=== PATIENT | female | born 1955 | race Caucasian/White ===

== ENCOUNTER → 2018-09-13 13:17 | Outpatient (CLI) | payer OTHER, MEDICAID, SELFPAY ==
[2018-09-13 13:58] LABS: Add Manual Diff / Slide Review NO; Basophils Percent Auto 0.5 % (0-2); Eosinophils Percent Auto 0.8 % (2-4); Hematocrit 40.2 % (36-46); Hemoglobin 14.1 g/dL (12.0-16.0); Lymphocytes Percent Auto 43.7 % (25-40); Mean Corpuscular Hemoglobin 30.1 PG (26-34); Mean Corpuscular Volume 86.1 fL (80-100); Monocytes Percent Auto 10.9 % (3-14); Neutrophils Absolute Auto 3000 /uL (1500-7000); Neutrophils Percent Auto 44.1 % (50-75); Platelet Count 272 X10^3/uL (150-400); Red Blood Cell Count 4.67 X10^6/uL (4.0-5.2); Red Cell Distribution Width 12.9 % (11.6-14.8); White Blood Cell Count 6.8 X10^3/uL (4.5-11.0)
[2018-09-13 14:02] LABS: Hemoglobin A1C% w Est Avg Glu 5.4 % (4.0-6.0)
[2018-09-13 14:14] LABS: HEMOLYSIS < 15 (0-50); Iron 89 ug/dL (37-170)
[2018-09-13 14:16] LABS: Alanine Aminotransferase 24 IU/L (9-52); Albumin 5.1 g/dL (3.5-5.0); Alkaline Phosphatase 92 U/L (38-126); Aspartate Aminotransferase 25 IU/L (14-36); BUN Creatinine Ratio 12.9 (6-22); Bilirubin Total 0.4 mg/dL (0.2-1.3); Blood Urea Nitrogen 9 mg/dL (7-17); Calcium 10.2 mg/dL (8.4-10.2); Carbon Dioxide 24 mmol/L (22-32); Chloride 105 mmol/L (98-107); Cholesterol 237 mg/dL (140-199); Estimated Glomerular Filt Rate > 60.0 mL/min (>60); Globulin 2.6 g/dL (1.7-4.1); Glucose 92 mg/dL (80-110); HDL Cholesterol 65 mg/dL (40-60); HEMOLYSIS < 15 (0-50); LDL Cholesterol Calculated 150 mg/dL (<100); Potassium 4.1 mmol/L (3.4-5.1); Sodium 142 mmol/L (137-145); Total Protein 7.7 g/dL (6.3-8.2); Triglycerides 112 mg/dL (35-150)
[2018-09-13 14:25] LABS: Percent Iron Saturation 28 % (15-50); Total Iron Binding Capacity 321 ug/dL (265-497); Transferrin 265 mg/dL (206-381)
[2018-09-13 14:34] LABS: Free T3, Triiodothyronine Free 4.02 pg/mL (2.77-5.27); Free T4, Direct Thyroxine 1.02 ng/dL (0.78-2.19)
[2018-09-13 14:47] LABS: Thyroid Stimulating Hormone 3.87 uIU/mL (0.47-4.68)
[2018-09-13 14:51] LABS: Ferritin 69.9 ng/mL (11.1-264)
[2018-09-13 15:53] LABS: Vitamin D 25 Hydroxy (D3) 111 ng/mL (30.0-100.0)
[2018-09-18 16:08] LABS: Thyroid Peroxidase Antibodies < 1 IU/mL (< 9)
[2018-09-18 17:15] LABS: Triiodothyronine T3 Total 101 ng/dL (76-181)
[2018-09-20 15:26] LABS: Triiodothyronine T3 Reverse 15 ng/dL (8-25)
== END ==
PROVIDERS: PCP Family Medicine; Visit Provider Family Medicine
DX: E03.9 Hypothyroidism, unspecified (principal); E53.8 Deficiency of other specified B group vitamins; E55.9 Vitamin D deficiency, unspecified; E61.1 Iron deficiency; E72.12 Methylenetetrahydrofolate reductase deficiency; M81.8 Other osteoporosis without current pathological fracture
CPT/HCPCS: 36415; 80053; 80061; 82306; 82728; 83036; 83540; 83550; 84439; 84443; 84480; 84481; 84482; 85025; 86376

== ENCOUNTER → 2019-03-25 11:44 | Outpatient (CLI) | payer MEDICARE, MEDICAID, SELFPAY ==
[2019-03-25 12:30] LABS: Add Manual Diff / Slide Review NO; Basophils Absolute Auto 0 /uL (0-100); Basophils Percent Auto 0.5 % (0-2); Eosinophils Absolute Auto 0 /uL (0-450); Eosinophils Percent Auto 0.5 % (2-4); Hematocrit 37.4 % (36-46); Hemoglobin 12.7 g/dL (12.0-16.0); Lymphocytes Absolute Auto 1800 /uL (1100-4500); Mean Corpuscular HGB Conc 33.9 % (30-36); Mean Corpuscular Hemoglobin 29.8 PG (26-34); Monocytes Absolute Auto 400 /uL (0-900); Monocytes Percent Auto 6.5 % (3-14); Neutrophils Absolute Auto 3800 /uL (1500-7000); Neutrophils Percent Auto 62.5 % (50-75); Platelet Count 271 X10^3/uL (150-400); Red Blood Cell Count 4.25 X10^6/uL (4.0-5.2); Red Cell Distribution Width 12.8 % (11.6-14.8); White Blood Cell Count 6.1 X10^3/uL (4.5-11.0)
[2019-03-25 16:08] LABS: HEMOLYSIS < 15 (0-50); Iron 79 ug/dL (37-170)
[2019-03-25 16:09] LABS: BUN Creatinine Ratio 16.7 (6-22); Blood Urea Nitrogen 10 mg/dL (7-17); Calcium 9.4 mg/dL (8.4-10.2); Carbon Dioxide 29 mmol/L (22-32); Chloride 103 mmol/L (98-107); Estimated Glomerular Filt Rate > 60.0 mL/min (>60); Glucose 88 mg/dL (80-110); HEMOLYSIS < 15 (0-50); Potassium 3.8 mmol/L (3.4-5.1); Sodium 140 mmol/L (137-145)
[2019-03-25 16:21] LABS: Percent Iron Saturation 25 % (15-50); Total Iron Binding Capacity 314 ug/dL (265-497); Transferrin 262 mg/dL (206-381)
[2019-03-25 16:40] LABS: TSH w/ Reflex to FT4 0.93 uIU/mL (0.47-4.68)
[2019-03-25 16:42] LABS: Ferritin 59.6 ng/mL (11.1-264)
[2019-03-25 17:12] LABS: Folate > 20.0 ng/mL (2.76-20.0)
[2019-03-30 12:37] LABS: Homocysteine 3.9 umol/L (< 10.4)
[2019-04-01 16:11] LABS: Methylmalonic Acid 233 nmol/L (87-318)
== END ==
PROVIDERS: PCP Family Medicine; Visit Provider Family Medicine
DX: E61.1 Iron deficiency (principal); M81.0 Age-related osteoporosis without current pathological fracture; M81.8 Other osteoporosis without current pathological fracture; E72.12 Methylenetetrahydrofolate reductase deficiency; I10 Essential (primary) hypertension; E03.9 Hypothyroidism, unspecified
CPT/HCPCS: 36415; 80048; 82306; 82728; 82746; 83090; 83540; 83550; 83921; 84443; 85025

== ENCOUNTER → 2019-06-25 11:29 | Outpatient (CLI) | payer MEDICARE, MEDICAID, SELFPAY ==
[2019-06-25 12:51] LABS: Ferritin 88.1 ng/mL (11.1-264)
[2019-06-25 16:26] LABS: Vitamin D 25 Hydroxy (D3) 48.7 ng/mL (30.0-100.0)
[2019-06-27 16:05] LABS: Folate, RBC 732 ng/mL RBC (> 280)
== END ==
PROVIDERS: PCP Family Medicine; Visit Provider Family Medicine
DX: E55.9 Vitamin D deficiency, unspecified (principal); E61.1 Iron deficiency; E72.12 Methylenetetrahydrofolate reductase deficiency; K58.9 Irritable bowel syndrome, unspecified; M79.7 Fibromyalgia; M81.0 Age-related osteoporosis without current pathological fracture
CPT/HCPCS: 36415; 82306; 82728; 82747

== ENCOUNTER → 2020-04-23 10:40 | Outpatient (CLI) | payer MEDICARE, MEDICAID, SELFPAY ==
[2020-04-23 12:00] LABS: BUN Creatinine Ratio 21.9 (6-22); Blood Urea Nitrogen 14 mg/dL (7-17); Calcium 9.8 mg/dL (8.4-10.2); Carbon Dioxide 30 mmol/L (22-32); Chloride 104 mmol/L (98-107); Estimated Glomerular Filt Rate > 60.0 mL/min (>60); Glucose 75 mg/dL (80-110); HEMOLYSIS < 15 (0-50); Potassium 3.9 mmol/L (3.4-5.1); Sodium 139 mmol/L (137-145)
== END ==
PROVIDERS: PCP Family Medicine; Referring Provider Family Medicine; Visit Provider Family Medicine
DX: E87.6 Hypokalemia (principal)
CPT/HCPCS: 36415; 80048

== ENCOUNTER → 2020-07-28 16:45 | Outpatient (CLI) | payer MEDICARE, MEDICAID, SELFPAY ==
[2020-07-28 17:34] LABS: Alanine Aminotransferase 16 IU/L (<35); Albumin 4.5 g/dL (3.5-5.0); Albumin Globulin Ratio 1.6 (1.0-2.8); Alkaline Phosphatase 109 U/L (38-126); Aspartate Aminotransferase 30 IU/L (14-36); BUN Creatinine Ratio 19.4 (6-22); Bilirubin Total 0.5 mg/dL (0.2-1.3); Blood Urea Nitrogen 12 mg/dL (7-17); Calcium 9.2 mg/dL (8.4-10.2); Carbon Dioxide 30 mmol/L (22-32); Chloride 103 mmol/L (98-107); Estimated Glomerular Filt Rate > 60.0 mL/min (>60); Globulin 2.8 g/dL (1.7-4.1); Glucose 94 mg/dL (80-110); HEMOLYSIS < 15 (0-50); Potassium 3.8 mmol/L (3.4-5.1); Sodium 138 mmol/L (137-145); Total Protein 7.3 g/dL (6.3-8.2)
[2020-07-28 18:07] LABS: Ferritin 84 ng/mL (11-264)
== END ==
PROVIDERS: PCP Family Medicine; Referring Provider Family Medicine; Visit Provider Family Medicine
DX: E61.1 Iron deficiency (principal); E87.6 Hypokalemia; K31.9 Disease of stomach and duodenum, unspecified; K58.9 Irritable bowel syndrome, unspecified
CPT/HCPCS: 36415; 80053; 82728

== ENCOUNTER → 2020-12-01 08:54 | Outpatient (CLI) | payer MEDICARE, MEDICAID, SELFPAY ==
[2020-12-01 09:33] LABS: Add Manual Diff / Slide Review NO; Basophils Absolute Auto 0 /uL (0-100); Basophils Percent Auto 0.4 % (0-2); Eosinophils Absolute Auto 100 /uL (0-450); Eosinophils Percent Auto 0.8 % (2-4); Hematocrit 38.4 % (36-46); Hemoglobin 13.2 g/dL (12.0-16.0); Lymphocytes Absolute Auto 2300 /uL (1100-4500); Lymphocytes Percent Auto 33.3 % (25-40); Mean Corpuscular HGB Conc 34.3 % (30-36); Mean Corpuscular Hemoglobin 29.7 PG (26-34); Mean Corpuscular Volume 86.8 fL (80-100); Monocytes Absolute Auto 600 /uL (0-900); Monocytes Percent Auto 8.6 % (3-14); Neutrophils Absolute Auto 3900 /uL (1500-7000); Neutrophils Percent Auto 56.9 % (50-75); Platelet Count 309 X10^3/uL (150-400); Red Blood Cell Count 4.42 X10^6/uL (4.0-5.2); Red Cell Distribution Width 12.5 % (11.6-14.8); White Blood Cell Count 6.9 X10^3/uL (4.5-11.0)
[2020-12-01 09:38] LABS: BUN Creatinine Ratio 28.6 (6-22); Blood Urea Nitrogen 18 mg/dL (7-17); Calcium 9.5 mg/dL (8.4-10.2); Carbon Dioxide 31 mmol/L (22-32); Chloride 104 mmol/L (98-107); Estimated Glomerular Filt Rate > 60.0 mL/min (>60); Glucose 101 mg/dL (80-110); HEMOLYSIS < 15 (0-50); Potassium 3.7 mmol/L (3.4-5.1); Sodium 137 mmol/L (137-145)
[2020-12-01 10:12] LABS: Vitamin D 25 Hydroxy (D3) 103 ng/mL (30.0-100.0)
[2020-12-01 10:14] LABS: Ferritin 118 ng/mL (11-264)
[2020-12-03 00:30] LABS: Vitamin B6 17.5 ug/L (2.0-32.8)
== END ==
PROVIDERS: PCP Family Medicine; Referring Provider Family Medicine; Visit Provider Family Medicine
DX: E87.6 Hypokalemia (principal); E78.6 Lipoprotein deficiency; D51.0 Vitamin B12 deficiency anemia due to intrinsic factor deficiency; E55.9 Vitamin D deficiency, unspecified; E61.1 Iron deficiency
CPT/HCPCS: 36415; 80048; 82306; 82728; 84207; 85025

== ENCOUNTER → 2021-03-11 14:42 | Outpatient (CLI) | payer MEDICARE, MEDICAID, SELFPAY ==
[2021-03-11 15:45] LABS: BUN Creatinine Ratio 23.4 (6-22); Blood Urea Nitrogen 15 mg/dL (7-17); Calcium 9.9 mg/dL (8.4-10.2); Carbon Dioxide 30 mmol/L (22-32); Chloride 103 mmol/L (98-107); Estimated Glomerular Filt Rate > 60.0 mL/min (>60); Glucose 97 mg/dL (80-110); HEMOLYSIS < 15 (0-50); Potassium 4.3 mmol/L (3.4-5.1); Sodium 140 mmol/L (137-145)
[2021-03-11 16:15] LABS: Vitamin D 25 Hydroxy (D3) 78.9 ng/mL (30.0-100.0)
[2021-03-11 16:53] LABS: Cortisol Random 3.76 ug/dL
[2021-03-12 08:43] LABS: Dehydroepiandrosterone Sulfate 39.1 ug/dL (20.4-186.6)
[2021-03-12 09:18] LABS: Calcium 9.8 mg/dL (8.7-10.3); Parathyroid Hormone, Intact 38 pg/mL (15-65)
[2021-03-14 16:48] LABS: Creatinine, Urine 29.5 mg/dL (Not Estab.); N-telo/Creat. Ratio 33 (0-89); N-telopeptide 85 nmol BCE (Not Estab.)
[2021-03-16 09:49] LABS: C-Telopeptide, Serum 394 pg/mL (.)
== END ==
PROVIDERS: PCP Family Medicine; Referring Provider Family Medicine; Visit Provider Family Medicine
DX: S22.000A Wedge compression fracture of unspecified thoracic vertebra, initial encounter for closed fracture (principal)
CPT/HCPCS: 36415; 80048; 82306; 82310; 82523; 82533; 82570; 82627; 83970

== ENCOUNTER → 2021-06-06 11:26 | Outpatient (CLI) | payer MEDICARE, MEDICAID, SELFPAY ==
[2021-06-09 08:14] LABS: Almond IgE <0.10 kU/L (Class 0); Cashew Nut IgE <0.10 kU/L (Class 0); Codfish Allergy IgE < 0.10 kU/L (Class 0); Egg White IgE <0.10 kU/L (Class 0); Hazelnut IgE <0.10 kU/L (Class 0); Milk IgE <0.10 kU/L (Class 0); Peanut IgE 0.18 kU/L (Class 0/I); Salmon Allergy IgE < 0.10 kU/L (Class 0); Scallop Allergy IgE < 0.10 kU/L (Class 0); Sesame seed Allergy IgE 0.16 kU/L (Class 0/I); Shrimp IgE <0.10 kU/L (Class 0); Soybean IgE <0.10 kU/L (Class 0); Tuna Allergy IgE < 0.10 kU/L (Class 0); Walnut IgE <0.10 kU/L (Class 0); Wheat Allergy IgE 0.21 kU/L (Class 0/I)
== END ==
PROVIDERS: PCP Family Medicine; Referring Provider Family Medicine; Visit Provider Family Medicine
DX: K58.9 Irritable bowel syndrome, unspecified (principal); K21.00 Gastro-esophageal reflux disease with esophagitis, without bleeding; K31.9 Disease of stomach and duodenum, unspecified
CPT/HCPCS: 36415; 86003

== ENCOUNTER → 2021-07-11 16:38 | Outpatient (CLI) | payer MEDICARE, MEDICAID, SELFPAY ==
--- NOTE | 2021-07-11 16:40 | DI.RAD.S_ITS ---
PROCEDURE: XR THORACIC SPINE 3V INDICATIONS: h/o compression fracture T7 TECHNIQUE: 3 views of the thoracic spine were acquired. COMPARISON: None. FINDINGS: Bones: Redemonstrated mild T7 compression fracture. The remaining vertebral body heights are maintained. No suspicious bony lesions. 12 pairs of ribs are noted, and appear intact where visualized. Soft tissues: No paravertebral stripe thickening. IMPRESSION: No acute osseous abnormality. Dictated by: Marv Guaman M.D. on 07/11/2021 at 16:53 Approved by: Marv Guaman M.D. on 07/11/2021 at 16:54
== END ==
PROVIDERS: PCP Family Medicine; Referring Provider Family Medicine; Visit Provider Family Medicine
DX: S22.000A Wedge compression fracture of unspecified thoracic vertebra, initial encounter for closed fracture (principal)
CPT/HCPCS: 72072

== ENCOUNTER → 2021-09-30 14:43 | Outpatient (CLI) | payer MEDICARE, MEDICAID, SELFPAY ==
[2021-09-30 15:00] LABS: Add Manual Diff / Slide Review NO; Basophils Absolute Auto 100 /uL (0-100); Basophils Percent Auto 0.8 % (0-2); Eosinophils Absolute Auto 100 /uL (0-450); Eosinophils Percent Auto 0.7 % (2-4); Hematocrit 38.8 % (36-46); Hemoglobin 13.6 g/dL (12.0-16.0); Lymphocytes Absolute Auto 2300 /uL (1100-4500); Lymphocytes Percent Auto 25.6 % (25-40); Mean Corpuscular HGB Conc 34.9 % (30-36); Mean Corpuscular Hemoglobin 29.9 PG (26-34); Mean Corpuscular Volume 85.6 fL (80-100); Monocytes Absolute Auto 800 /uL (0-900); Monocytes Percent Auto 9.2 % (3-14); Neutrophils Absolute Auto 5600 /uL (1500-7000); Neutrophils Percent Auto 63.7 % (50-75); Platelet Count 309 X10^3/uL (150-400); Red Blood Cell Count 4.54 X10^6/uL (4.0-5.2); Red Cell Distribution Width 12.7 % (11.6-14.8); White Blood Cell Count 8.8 X10^3/uL (4.5-11.0)
[2021-09-30 15:11] LABS: Hemoglobin A1C% w Est Avg Glu 5.6 % (4.0-6.0)
[2021-09-30 15:42] LABS: Alanine Aminotransferase 19 IU/L (<35); Albumin 4.6 g/dL (3.5-5.0); Albumin Globulin Ratio 1.4 (1.0-2.8); Alkaline Phosphatase 107 U/L (38-126); Aspartate Aminotransferase 30 IU/L (14-36); BUN Creatinine Ratio 15.3 (6-22); Bilirubin Total 0.3 mg/dL (0.2-1.3); Blood Urea Nitrogen 11 mg/dL (7-17); Calcium 9.3 mg/dL (8.4-10.2); Carbon Dioxide 32 mmol/L (22-32); Chloride 105 mmol/L (98-107); Estimated Glomerular Filt Rate > 60.0 mL/min (>60); Globulin 3.2 g/dL (1.7-4.1); Glucose 80 mg/dL (80-110); HEMOLYSIS < 15 (0-50); Potassium 3.6 mmol/L (3.4-5.1); Sodium 141 mmol/L (137-145); Total Protein 7.8 g/dL (6.3-8.2)
[2021-09-30 15:59] LABS: Vitamin D 25 Hydroxy (D3) 67.2 ng/mL (30.0-100.0)
[2021-09-30 16:14] LABS: TSH w/ Reflex to FT4 2.37 uIU/mL (0.47-4.68)
[2021-10-06 04:34] LABS: CK-BB 0 % (0); CK-MB 0 % (0-3); CK-MM 100 % (97-100); Macro Type 1 0 % (Not Observed); Macro Type 2 0 % (Not Observed)
== END ==
PROVIDERS: PCP Family Medicine; Referring Provider Family Medicine; Visit Provider Family Medicine
DX: E55.9 Vitamin D deficiency, unspecified (principal); Z86.39 Personal history of other endocrine, nutritional and metabolic disease; M79.10 Myalgia, unspecified site; K58.2 Mixed irritable bowel syndrome; D51.0 Vitamin B12 deficiency anemia due to intrinsic factor deficiency; K31.9 Disease of stomach and duodenum, unspecified
CPT/HCPCS: 36415; 80053; 82306; 82550; 82553; 83036; 84443; 85025

== ENCOUNTER → 2021-10-25 11:37 | Outpatient (CLI) | payer MEDICARE, MEDICAID, SELFPAY ==
--- NOTE | 2021-10-25 11:38 | DI.RAD.S_ITS ---
PROCEDURE: XR FOOT LT MIN 3V INDICATIONS: left foot pain TECHNIQUE: 3 views of the foot were acquired. COMPARISON: None. FINDINGS: Bones: No fractures or dislocations. Mild osteopenia is seen. Mild forefoot joint osteoarthritic changes are noted. No suspicious bony lesions. Soft tissues: No tibiotalar joint effusion. Achilles tendon appears normal. IMPRESSION: Mild osteopenia and mild forefoot joint osteoarthritis. No fracture or dislocation. Dictated by: Yoel Ramirez M.D. on 10/25/2021 at 12:51 Approved by: Yoel Ramirez M.D. on 10/25/2021 at 12:51
== END ==
PROVIDERS: PCP Family Medicine; Referring Provider Family Medicine; Visit Provider Family Medicine
DX: M19.072 Primary osteoarthritis, left ankle and foot (principal); G57.62 Lesion of plantar nerve, left lower limb; G62.9 Polyneuropathy, unspecified; M79.672 Pain in left foot
CPT/HCPCS: 73630

== ENCOUNTER → 2022-01-05 16:43 | Outpatient (CLI) | payer MEDICARE, MEDICAID, SELFPAY ==
[2022-01-05 18:52] LABS: Add Manual Diff / Slide Review NO; Basophils Absolute Auto 0 /uL (0-100); Basophils Percent Auto 0.5 % (0-2); Eosinophils Absolute Auto 100 /uL (0-450); Eosinophils Percent Auto 0.8 % (2-4); Hematocrit 39.1 % (36-46); Hemoglobin 13.9 g/dL (12.0-16.0); Lymphocytes Absolute Auto 2400 /uL (1100-4500); Lymphocytes Percent Auto 27.4 % (25-40); Mean Corpuscular HGB Conc 35.5 % (30-36); Mean Corpuscular Hemoglobin 30.2 PG (26-34); Mean Corpuscular Volume 85.1 fL (80-100); Monocytes Absolute Auto 700 /uL (0-900); Monocytes Percent Auto 8.4 % (3-14); Neutrophils Absolute Auto 5500 /uL (1500-7000); Neutrophils Percent Auto 62.9 % (50-75); Platelet Count 330 X10^3/uL (150-400); Red Blood Cell Count 4.59 X10^6/uL (4.0-5.2); Red Cell Distribution Width 12.6 % (11.6-14.8); White Blood Cell Count 8.8 X10^3/uL (4.5-11.0)
[2022-01-05 18:53] LABS: Alanine Aminotransferase 17 IU/L (<35); Albumin 4.9 g/dL (3.5-5.0); Albumin Globulin Ratio 1.5 (1.0-2.8); Alkaline Phosphatase 104 U/L (38-126); Aspartate Aminotransferase 30 IU/L (14-36); BUN Creatinine Ratio 23.7 (6-22); Bilirubin Total 0.3 mg/dL (0.2-1.3); Blood Urea Nitrogen 18 mg/dL (7-17); Calcium 9.5 mg/dL (8.4-10.2); Carbon Dioxide 31 mmol/L (22-32); Chloride 101 mmol/L (98-107); Estimated Glomerular Filt Rate > 60 mL/min (>60); Globulin 3.3 g/dL (1.7-4.1); Glucose 96 mg/dL (80-110); HEMOLYSIS < 15 (0-50); Sodium 141 mmol/L (137-145); Total Protein 8.2 g/dL (6.3-8.2)
[2022-01-05 18:54] LABS: HEMOLYSIS < 15 (0-50); Iron 59 ug/dL (37-170)
[2022-01-05 19:06] LABS: Percent Iron Saturation 20 % (15-50); Total Iron Binding Capacity 301 ug/dL (265-497); Transferrin 237 mg/dL (206-381)
[2022-01-05 19:27] LABS: Ferritin 179 ng/mL (11-264)
[2022-01-12 12:07] LABS: Vitamin B6 24.3 ug/L (3.4-65.2)
== END ==
PROVIDERS: PCP Family Medicine; Referring Provider Family Medicine; Visit Provider Family Medicine
DX: E53.9 Vitamin B deficiency, unspecified (principal); D51.0 Vitamin B12 deficiency anemia due to intrinsic factor deficiency; E61.1 Iron deficiency; E87.6 Hypokalemia
CPT/HCPCS: 36415; 80053; 82728; 83540; 83550; 84207; 85025

== ENCOUNTER → 2022-03-09 12:20 | Outpatient (CLI) | payer MEDICARE, MEDICAID, SELFPAY ==
--- NOTE | 2022-03-09 12:22 | DI.MRI.S_ITS ---
PROCEDURE: MR ANKLE LT WO CON INDICATIONS: chronic left ankle pain, non wt bearing, podiatry recommend TECHNIQUE: Noncontrast sagittal T1 spin echo and T2 fast spin echo with fat saturation, axial proton density fast spin echo and T2 fast spin echo with fat saturation, coronal T1 spin echo and T2 fast spin echo with fat saturation through the ankle/hindfoot. COMPARISON: [facility] Outside Film, CR, XR ANKLE 3+ VIEWS LEFT, 01/31/2022, 12:45. FINDINGS: Image quality: Excellent. Bones and joints: There is no displaced fracture. There is moderate ill-defined T2 signal elevation within the distal tibia adjacent to the tibiotalar interface. No hindfoot coalitions. No osteochondral injuries of the talar dome. No pathologic joint effusions. Medial structures: The posterior tibialis, flexor digitorum longus, and flexor hallucis longus tendons are intact. A small amount of fluid surrounds the tibialis posterior, flexor digitorum longus, and flexor hallucis longus tendons. The posterior tibial neurovascular bundle appears normal within the tarsal tunnel, without extrinsic mass effect. The deep layer (anterior and posterior tibiotalar ligaments) and superficial layer (tibionavicular, tibiospring, and tibiocalcaneal ligaments) of the deltoid ligament appear normal. The spring ligament components (superomedial calcaneonavicular, medioplantar oblique calcaneonavicular, and inferoplantar longitudinal ligaments) are intact. Lateral structures: The anterior talofibular, calcaneofibular, and posterior talofibular ligaments appear intact. More superiorly, the anterior and posterior tibiofibular ligaments appear intact, as is the intermalleolar ligament. The tibiofibular syndesmosis is normal in width at 2 mm or less. The peroneus longus and brevis tendons demonstrate normal location and morphology. Adjacent bony peroneal tubercle and retrotrochlear prominence are normal in size. The sinus tarsi demonstrates normal fatty signal, without edema, fibrosis, or cyst formation. Visualized sinus tarsi components (cervical ligament, interosseous talocalcaneal ligament, roots of the inferior extensor retinaculum) appear normal. The calcaneonavicular and calcaneocuboid components of the bifurcate ligament appear intact. The dorsal calcaneocuboid ligament appears intact. Anterior structures: The tibialis anterior, extensor hallucis longus, and extensor digitorum longus tendons appear intact. The dorsal talonavicular ligament appears intact. Posterior and plantar structures: Achilles tendon demonstrates a few small low-grade tears within its mid and distal aspects. Medial and lateral bands of the plantar fascia are of normal thickness. No abductor digiti quinti muscle atrophy to suggest Fine neuropathy. IMPRESSION: 1. There are a few small low-grade tears within the mid and distal callus tendon. 2. Medial flexor tenosynovitis. 3. Nonspecific marrow edema within the distal tibia, which could indicate stress injury, contusion, or degenerative marrow edema. Dictated by: Mehrdad Barnhart M.D. on 03/09/2022 at 13:51 Approved by: Mehrdad Barnhart M.D. on 03/09/2022 at 16:40
== END ==
PROVIDERS: PCP Family Medicine; Referring Provider Podiatrist; Visit Provider Podiatrist
DX: M76.822 Posterior tibial tendinitis, left leg (principal); M65.872 Other synovitis and tenosynovitis, left ankle and foot; S96.912A Strain of unspecified muscle and tendon at ankle and foot level, left foot, initial encounter; M25.572 Pain in left ankle and joints of left foot; G89.29 Other chronic pain
CPT/HCPCS: 73721

== ENCOUNTER → 2022-06-20 12:05 | Outpatient (CLI) | payer MEDICARE, MEDICAID, SELFPAY ==
[2022-06-20 14:11] LABS: HEMOLYSIS < 15 (0-50); Iron 90 ug/dL (37-170)
[2022-06-20 14:15] LABS: BUN Creatinine Ratio 13.5 (6-22); Blood Urea Nitrogen 10 mg/dL (7-17); Calcium 9.4 mg/dL (8.4-10.2); Carbon Dioxide 26 mmol/L (22-32); Chloride 102 mmol/L (98-107); Cholesterol 232 mg/dL (140-199); Estimated Glomerular Filt Rate > 60 mL/min (>60); Glucose 96 mg/dL (80-110); HDL Cholesterol 43 mg/dL (40-60); HEMOLYSIS < 15 (0-50); LDL Cholesterol Calculated 130 mg/dL (<100); Potassium 3.7 mmol/L (3.4-5.1); Sodium 141 mmol/L (137-145); Triglycerides 297 mg/dL (35-150)
[2022-06-20 14:23] LABS: Percent Iron Saturation 31 % (15-50); Total Iron Binding Capacity 289 ug/dL (265-497); Transferrin 212 mg/dL (206-381)
[2022-06-20 14:29] LABS: Free T4, Direct Thyroxine 0.95 ng/dL (0.78-2.19)
[2022-06-20 14:42] LABS: Thyroid Stimulating Hormone 1.64 uIU/mL (0.47-4.68)
[2022-06-20 14:48] LABS: Ferritin 198 ng/mL (11-264)
[2022-06-20 15:11] LABS: Vitamin D 25 Hydroxy (D3) 49.3 ng/mL (30.0-100.0)
[2022-06-24 04:08] LABS: Triiodothyronine T3 Reverse 15.3 ng/dL (9.2-24.1)
[2022-06-24 16:38] LABS: Magnesium, RBC 6.6 mg/dL (4.2-6.8)
== END ==
PROVIDERS: PCP Family Medicine; Referring Provider Family Medicine; Visit Provider Family Medicine
DX: E87.6 Hypokalemia (principal); D51.0 Vitamin B12 deficiency anemia due to intrinsic factor deficiency; E03.9 Hypothyroidism, unspecified; E55.9 Vitamin D deficiency, unspecified; E61.1 Iron deficiency; M79.7 Fibromyalgia; Z13.220 Encounter for screening for lipoid disorders
CPT/HCPCS: 36415; 80048; 80061; 82306; 82728; 83540; 83550; 83735; 84439; 84443; 84481; 84482

== ENCOUNTER → 2022-12-12 11:44 | Outpatient (CLI) | payer MEDICARE, MEDICAID, SELFPAY ==
[2022-12-12 12:53] LABS: Hematocrit 39.3 % (36-46); Hemoglobin 13.6 g/dL (12.0-16.0); Mean Corpuscular HGB Conc 34.5 % (30-36); Mean Corpuscular Hemoglobin 29.6 PG (26-34); Mean Corpuscular Volume 85.8 fL (80-100); Platelet Count 322 X10^3/uL (150-400); Red Blood Cell Count 4.58 X10^6/uL (4.0-5.2); White Blood Cell Count 7.4 X10^3/uL (4.5-11.0)
[2022-12-12 13:32] LABS: BUN Creatinine Ratio 22.8 (6-22); Blood Urea Nitrogen 13 mg/dL (7-17); Calcium 9.2 mg/dL (8.4-10.2); Carbon Dioxide 27 mmol/L (22-32); Chloride 101 mmol/L (98-107); Estimated Glomerular Filt Rate > 60 mL/min (>60); Glucose 95 mg/dL (80-110); HEMOLYSIS < 15 (0-50); Potassium 3.8 mmol/L (3.4-5.1); Sodium 138 mmol/L (137-145)
[2022-12-12 14:04] LABS: Ferritin 232 ng/mL (11-264)
[2022-12-12 16:51] LABS: Vitamin D 25 Hydroxy (D3) 51.9 ng/mL (30.0-100.0)
== END ==
PROVIDERS: PCP Family Medicine; Referring Provider Family Medicine; Visit Provider Family Medicine
DX: D51.0 Vitamin B12 deficiency anemia due to intrinsic factor deficiency (principal); E55.9 Vitamin D deficiency, unspecified; E61.1 Iron deficiency; E87.6 Hypokalemia
CPT/HCPCS: 36415; 80048; 82306; 82728; 85027

== ENCOUNTER → 2023-05-18 14:24 | Outpatient (CLI) | payer MEDICARE, MEDICAID, SELFPAY ==
[2023-05-18 15:33] LABS: Hematocrit 39.8 % (36-46); Hemoglobin 13.7 g/dL (12.0-16.0); Mean Corpuscular HGB Conc 34.5 % (30-36); Mean Corpuscular Hemoglobin 29.9 PG (26-34); Mean Corpuscular Volume 86.6 fL (80-100); Platelet Count 318 X10^3/uL (150-400); White Blood Cell Count 10.5 X10^3/uL (4.5-11.0)
[2023-05-18 16:09] LABS: Cholesterol 238 mg/dL (140-199); HDL Cholesterol 46 mg/dL (40-60); LDL Cholesterol Calculated 156 mg/dL (<100); Triglycerides 180 mg/dL (35-150)
[2023-05-18 16:18] LABS: NT-proBNP (BNP-Adult 18+) 30 pg/mL (<125)
[2023-05-18 16:45] LABS: Ferritin 195 ng/mL (11-264)
== END ==
PROVIDERS: PCP Family Medicine; Referring Provider Family Medicine; Visit Provider Family Medicine
DX: E78.5 Hyperlipidemia, unspecified; D51.0 Vitamin B12 deficiency anemia due to intrinsic factor deficiency; E53.9 Vitamin B deficiency, unspecified; E61.1 Iron deficiency; I25.10 Atherosclerotic heart disease of native coronary artery without angina pectoris; I49.9 Cardiac arrhythmia, unspecified; I50.9 Heart failure, unspecified
CPT/HCPCS: 36415; 80061; 82728; 83880; 85027

== ENCOUNTER 2023-08-27 13:10 | Day surgery (SDC) | payer MEDICARE, MEDICAID, SELFPAY ==
[2023-08-27] MEDS: LACTATED RINGERS 1,000 ML 120 ML IV (13:47)
[2023-08-27 13:51] VITALS: BP 153/82; PULSE 92; RESP 16; TEMP 36.7; O2SAT 99; BMI 28.3
--- NOTE | 2023-08-27 14:07 | PM.HP.1 ---
History of Present Illness History of Present Illness Date Patient Seen: 08/27/23 Time Patient Seen: 14:07 Chief complaint: SDC Narrative: 68-year-old female recently seen in GI clinic. She is been experiencing globus and intermittent ?rawness? in her lower substernal region. She uses natural remedies to combat this. She is had a prior hiatal hernia repair some 10 years ago. COUNT INCLUDES THE [facility] Medical History Acute pain of left shoulder Chronic left-sided thoracic back pain Cervical somatic dysfunction Cranial somatic dysfunction Sacral region somatic dysfunction Pelvic somatic dysfunction Lumbar region somatic dysfunction Thoracic region somatic dysfunction Chronic bilateral low back pain with left-sided sciatica Ankle pain, chronic History of diabetes mellitus Allergic reaction to grass pollen Osteoporosis Compression fracture of body of thoracic vertebra (~02/2021) Seborrheic keratosis Pernicious anemia Esophageal stricture Esophagitis Gastropathy 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/2016) RLS (restless legs syndrome) Tinnitus Hiatal hernia Hemorrhoids Tubular adenoma of colon (10/2014) Bipolar disorder Substance abuse PTSD (post-traumatic stress disorder) Personality disorder Sacroiliitis (2011) Right shoulder pain Osteoporosis of lumbar spine Lumbar facet arthropathy (2013) Foot pain (2011) Fibromyalgia Ankle pain, chronic (2013) Hypothyroidism Depression Anxiety IBS (irritable bowel syndrome) Chicken pox Hayfever Osteoarthritis (2011) Depression (08/07/14) Surgical History Anesthesia History of fundoplication Status post endoscopy (10/2019) Status post colonoscopy (07/2019) History of tonsillectomy (1971) Status post reduction mammoplasty (05/2010) History of repair of hiatal hernia (09/2011) Family History Child Age: 47 Hay fever Environmental allergies Child Age: 38 Penicillin allergy Child Age: 35 Hx of appendectomy Allergic to cats Grandmother Diabetes mellitus Mother Diabetes mellitus Heart disease Hypertension High cholesterol Stroke Angina pectoris Liver cancer Brain cancer Lung cancer Sister Diabetes mellitus Obesity Social History household members: none Smoking Status: Former smoker alcohol intake: never Meds Home Medications and Allergies Home Medications Medication Instructions Recorded Confirmed Type ondansetron HCl 4 mg tablet 4 mg PO Q4HP PRN #20 tabs 10/11/17 06/15/23 Rx (Zofran) cholecalciferol (vitamin D3) 250 10,000 tab PO QDAY ##0 11/11/17 08/27/23 History mcg (10,000 unit) tablet k2 with vit D 100 100 ml PO DAILY 10/25/21 08/27/23 History vitamin c 1000 mg PO 10/25/21 06/15/23 History loratadine 10 mg tablet (Claritin) 10 mg PO DAILY PRN allergic 02/08/22 08/27/23 Rx symptoms #90 tabs folic acid 5 mg PO DAILY 02/22/22 08/27/23 History acetaminophen 300 mg-codeine 30 mg 1 tab PO Q6H PRN pain #5 tabs 10/03/22 08/27/23 Rx tablet tizanidine 4 mg tablet 4 mg PO Q8H PRN muscle spasticity 11/21/22 08/27/23 Rx #20 tabs clonazepam 1 mg tablet 0.5 mg (1/2 x 1 mg) PO BID PRN 12/12/22 08/27/23 Rx anxiety #10 tabs Disabled Parking Permit #1 ea 02/21/23 06/15/23 Rx cyanocobalamin (vitamin B-12) 500 mcg (0.5 mL) SUBCUT BID #30 mL 08/20/23 08/27/23 Rx 1,000 mcg/mL injection solution insulin syringe,safetyneedle 1 mL #200 ea 08/20/23 08/20/23 Rx 30 gauge x 1/2 Allergies Allergy/AdvReac Type Severity Reaction Status Date / Time grass pollen Allergy Severe Hives Verified 08/27/23 13:26 hydromorphone [HYDROMORPHONE] Allergy Mild ITCHY Verified 08/27/23 13:26 albuterol [ALBUTEROL] Allergy Unknown tachycardia Verified 08/27/23 13:26 gluten [GLUTEN] Allergy Unknown Verified 08/27/23 13:26 lithium [LITHIUM] Allergy Unknown SWELLING Verified 08/27/23 13:26 dexamethasone AdvReac Severe bladder Verified 08/27/23 13:26 pain DAIRY Allergy Intermediate congestion Uncoded 08/27/23 13:26 and stomach problems Review of Systems Review of Systems ROS: Yes All systems reviewed with the patient and are negative except as otherwise documented Exam Vital Signs (past 8 hours): - 08/27/23 13:51 Temperature 98.1 F Pulse Rate 92 H Respiratory Rate 16 Blood Pressure 153/82 H Pulse Oximetry 99 Oxygen Delivery Method Room Air Oxygen Delivery Method Room Air Const General: cooperative HENMT Head: normal to inspection Eyes General: appearance normal, both eyes and all related structures Neck Neck: normal visual inspection Chest Chest: normal inspection of the chest Resp Effort & Inspection: normal respiratory effort Cardio Rate: regular rate GI Inspection: normal to inspection Skin General: no rashes or lesions noted Neuro General: patient alert and patient awake Extrem General: normal to inspection and no pedal edema Psych Appearance: grossly normal Assessment & Plan Assessment & Plan narrative: 68-year-old female with chronic pyrosis (rawness) and intermittent globus. Updated upper endoscopy is pursued today.
--- NOTE | 2023-08-27 14:09 | PM.PREOP ---
Pre-operative Note Interval Note History & Physical reviewed/Exam performed by Physician: Yes Changes to H&P: No ASA Class (for procedural sedation): II
[2023-08-27 15:06] VITALS: BP 106/64; PULSE 82; RESP 12; TEMP 36.4; O2SAT 95
--- NOTE | 2023-08-27 15:06 | PM.OP.EGD ---
Operative Date/Time/Diagnoses Date of procedure: 08/27/23 Time of procedure: 15:06 Pre-op diagnosis: Globus and pyrosis Post-op diagnosis: same Procedure & Clinicians Study performed: EGD with biopsies Same procedure as scheduled: Yes Indications: Globus and pyrosis Surgeon: Panfilo Matamoros Procedure Notes SCOAP/Timeout: Done Procedure in detail: After the risks and benefits were explained, written and verbal informed consent was obtained. The patient was brought into the procedure room and placed into the left lateral decubitus position. Please see anesthesia note for sedation details. The scope was introduced into the mouth through the bite block and advanced under direct visualization to the 2nd portion of the duodenum. The scope was slowly withdrawn carefully examining the mucosa for any defects or lesions. Retroflexed views were accomplished in the stomach. The stomach was decompressed, the scope was then removed from the patient who tolerated the procedure well. Sedation minutes: 10 Complications: none Impression: 1. Duodenum: No pathology from the bulb through to the 2nd portion. 2. Stomach: No ulcers no outlet obstruction no mass lesions. Mild diffuse gastropathy was appreciated and therefore biopsies from the antrum and body were acquired and submitted separately. Retroflexed views of the LES disclosed a prior fundoplication. It appeared to be intact. 3. Esophagus: The squamocolumnar junction correlated with the top of the gastric folds. GEJ was at about 35 cm from the incisors. To my eye, it appeared as though there was some mild slippage of the fundoplication allowing observation of the most proximal element of gastric folds from the vantage point of distal esophagus. The patient had evidence of LA grade C erosive esophagitis. I took a couple of biopsies from the GE junction for histopathologic analysis. The remainder of the esophagus was visually unremarkable apart from some mild proximal tortuosity. Endoscopic diagnosis 1. Gastropathy 2. Intact but slightly slipped prior fundoplication 3. LA grade C erosive esophagitis Post-procedure Plan for aftercare: 1. Await histology. 2. Consider a more potent proactive anti-reflux medical regimen. Disposition: PACU
[2023-08-27 15:11] VITALS: BP 96/73; PULSE 84; RESP 20; O2SAT 95
--- NOTE | 2023-08-27 15:15 | PATH_ITS ---
[facility] Accession Number: [id number] No. of containers..03 Tissue . 01 Material submitted: . PART A: stomach - ANTRUM PART B: stomach - BODY STOMACH PART C: esophagus, E-G Junction - GE J . 01 Diagnosis: A. Stomach, Antrum, Biopsy: Antral mucosa with reactive gastropathy. No evidence of Helicobacter organisms on H/E stain. Negative for intestinal metaplasia. Negative for dysplasia or malignancy. . B. Body Stomach, Biopsy: Body-type mucosa with no diagnostic abnormality. No evidence of Helicobacter organisms on H/E stain. Negative for intestinal metaplasia. Negative for dysplasia or malignancy. . C. Gastroesophageal Junction, Biopsy: Squamocolumnar junctional mucosa with mild chronic active inflammation. Negative for intestinal metaplasia. Negative for dysplasia and malignancy. [facility] 09/05/2023 1749 Local . 01 Electronically signed: . Essence Bobo MD, Pathologist NPI- [id number] . 01 Gross description: . Part A: ANTRUM: Received in formalin is 1 fragment(s) of thompson, soft tissue measuring 0.3 x 0.3 x 0.3 cm submitted entirely in 1 cassette(s) Part B: BODY STOMACH: Received in formalin are 2 fragment(s) of thompson, soft tissue measuring 0.1 x 0.1 x 0.1 cm to 0.4 x 0.2 x 0.2 cm submitted entirely in 1 cassette(s) Part C: GE J: Received in formalin is 1 fragment(s) of thompson, soft tissue measuring 0.2 x 0.2 x 0.2 cm submitted entirely in 1 cassette(s) /ASHA 08/28/2023 1916 Local . 01 Pathologist provided ICD-10: K44.9, K21.00 . 01 CPT . 297904, 941964, [id number] Specimen Comment: A courtesy copy of this report has been sent to [phone] Performed at: 01 [facility] [address] [place] [address], [place], [place] [id number] MD Emmett Franklin MD Phone: [phone]
[2023-08-27 15:16] VITALS: BP 140/52; PULSE 80; RESP 14; O2SAT 95
[2023-08-27 15:22] VITALS: BP 101/78; PULSE 87; RESP 16; TEMP 36.3; O2SAT 97
[2023-08-27 15:27] VITALS: BP 129/70; PULSE 84; RESP 18; TEMP 36.4; O2SAT 97
== END 2023-08-27 15:31 | disposition home or self-care (01) ==
PROVIDERS: PCP Family Medicine; Referring Provider Internal Medicine Gastroenterology; Visit Provider Internal Medicine Gastroenterology
PROC: 0DJ08ZZ Inspection of Upper Intestinal Tract, Via Natural or Artificial Opening Endoscopic (ICD-10-PCS; CPT 43235; principal; 2023-08-27 14:00)
DX: K21.00 Gastro-esophageal reflux disease with esophagitis, without bleeding (principal); Z98.890 Other specified postprocedural states; K31.89 Other diseases of stomach and duodenum; K29.50 Unspecified chronic gastritis without bleeding
CPT/HCPCS: 43239; J2704

== ENCOUNTER → 2023-12-12 10:55 | Outpatient (CLI) | payer MEDICARE, MEDICAID, SELFPAY ==
[2023-12-12 12:40] LABS: HEMOLYSIS < 15 (0-50); Iron 88 ug/dL (37-170)
[2023-12-12 12:51] LABS: Percent Iron Saturation 34 % (15-50); Total Iron Binding Capacity 257 ug/dL (265-497); Transferrin 214 mg/dL (206-381)
[2023-12-12 12:53] LABS: Vitamin D 25 Hydroxy (D3) 47.1 ng/mL (30.0-100.0)
[2023-12-12 13:19] LABS: Ferritin 212 ng/mL (11-264)
[2023-12-14 22:37] LABS: Folate, RBC >1550 ng/mL (>498); Hemolysate >620.0 ng/mL (Not Estab.)
[2023-12-19 01:15] LABS: Vitamin B6 16.8 ug/L (3.4-65.2)
[2023-12-19 21:10] LABS: Magnesium, RBC 5.9 mg/dL (3.7-7.0)
== END ==
PROVIDERS: PCP Family Medicine; Referring Provider Family Medicine; Visit Provider Family Medicine
DX: D51.0 Vitamin B12 deficiency anemia due to intrinsic factor deficiency (principal); E55.9 Vitamin D deficiency, unspecified; I25.10 Atherosclerotic heart disease of native coronary artery without angina pectoris; E53.9 Vitamin B deficiency, unspecified; E61.1 Iron deficiency
CPT/HCPCS: 36415; 82306; 82728; 82747; 83540; 83550; 83735; 84207; 85014

== ENCOUNTER → 2024-01-15 13:50 | Outpatient (CLI) | payer MEDICARE, MEDICAID, SELFPAY ==
[2024-01-15 14:53] LABS: Add Manual Diff / Slide Review NO; Basophils Absolute Auto 0 /uL (0-100); Basophils Percent Auto 0.5 % (0-2); Eosinophils Absolute Auto 100 /uL (0-450); Eosinophils Percent Auto 0.7 % (2-4); Hemoglobin 13.2 g/dL (12.0-16.0); Lymphocytes Absolute Auto 3200 /uL (1100-4500); Lymphocytes Percent Auto 33.1 % (25-40); Mean Corpuscular HGB Conc 34.7 % (30-36); Mean Corpuscular Hemoglobin 30.1 PG (26-34); Mean Corpuscular Volume 86.9 fL (80-100); Monocytes Absolute Auto 900 /uL (0-900); Monocytes Percent Auto 9.2 % (3-14); Neutrophils Absolute Auto 5400 /uL (1500-7000); Neutrophils Percent Auto 56.5 % (50-75); Platelet Count 323 X10^3/uL (150-400); Red Blood Cell Count 4.38 X10^6/uL (4.0-5.2); Red Cell Distribution Width 12.9 % (11.6-14.8); White Blood Cell Count 9.5 X10^3/uL (4.5-11.0)
== END ==
PROVIDERS: PCP Family Medicine; Referring Provider Physician Assistant; Visit Provider Physician Assistant
DX: K31.9 Disease of stomach and duodenum, unspecified (principal); K20.90 Esophagitis, unspecified without bleeding; J32.9 Chronic sinusitis, unspecified
CPT/HCPCS: 36415; 83520; 85025

== ENCOUNTER → 2025-03-25 14:47 | Outpatient (CLI) | payer MEDICARE, MEDICAID, SELFPAY ==
[2025-03-25 15:49] LABS: Free T3, Triiodothyronine Free 3.86 pg/mL (2.77-5.27)
[2025-03-25 16:03] LABS: TSH w/ Reflex to FT4 0.79 uIU/mL (0.47-4.68)
[2025-04-01 00:10] LABS: Magnesium, RBC 6.1 mg/dL (3.7-7.0)
== END ==
PROVIDERS: PCP Family Medicine; Referring Provider Family Medicine; Visit Provider Family Medicine
DX: Z78.9 Other specified health status (principal); R68.89 Other general symptoms and signs; M80.00XA Age-related osteoporosis with current pathological fracture, unspecified site, initial encounter for fracture
CPT/HCPCS: 36415; 83735; 84443; 84481

== ENCOUNTER → 2025-06-04 14:44 | Outpatient (CLI) | payer MEDICARE, MEDICAID, SELFPAY ==
[2025-06-04 16:01] LABS: HEMOLYSIS < 15 (0-50); Iron 105 ug/dL (37-170)
[2025-06-04 16:03] LABS: Alanine Aminotransferase 22 IU/L (<35); Albumin 5.0 g/dL (3.5-5.0); Albumin Globulin Ratio 1.7 (1.0-2.8); Alkaline Phosphatase 124 U/L (38-126); Blood Urea Nitrogen 15 mg/dL (7-17); Calcium 9.6 mg/dL (8.4-10.2); Carbon Dioxide 27 mmol/L (22-32); Chloride 100 mmol/L (98-107); Estimated Glomerular Filt Rate > 60 mL/min (>60); Globulin 2.9 g/dL (1.7-4.1); Glucose 91 mg/dL (70-99); HEMOLYSIS < 15 (0-50); Potassium 4.0 mmol/L (3.4-5.1); Sodium 139 mmol/L (137-145); Total Protein 7.9 g/dL (6.3-8.2)
[2025-06-04 16:14] LABS: Percent Iron Saturation 42 % (15-50); Total Iron Binding Capacity 249 ug/dL (265-497); Transferrin 245 mg/dL (206-381)
[2025-06-04 16:19] LABS: Vitamin D 25 Hydroxy (D3) 58.7 ng/mL (30.0-100.0)
[2025-06-04 16:40] LABS: Ferritin 265 ng/mL (11-264)
== END ==
PROVIDERS: PCP Family Medicine; Referring Provider Family Medicine; Visit Provider Family Medicine
DX: E61.1 Iron deficiency (principal); E55.9 Vitamin D deficiency, unspecified; Z78.9 Other specified health status; E87.6 Hypokalemia; K20.90 Esophagitis, unspecified without bleeding
CPT/HCPCS: 36415; 80053; 82306; 82728; 83540; 83550